=== PATIENT | female | born 1990 | race Caucasian/White ===

== ENCOUNTER 2020-11-18 15:36 | Inpatient (IN) | payer OTHER ==
[~2020-11-18] VITALS: Ht 170.2 cm; Wt 77.7 kg
[2020-11-18] MEDS ORDERED: PREN1TAB60 PO (15:54)
[2020-11-18 16:12] VITALS: BP 117/65
[2020-11-18 16:13] LABS: MICROSCOPIC INDICATED
[2020-11-18] MEDS ORDERED: NEWBORN KIT ONE (20:19)
[2020-11-18] MEDS ORDERED: OXYTOCIN 30U/ 0.9% NaCL 500ML 500 ML ONE (20:19)
[2020-11-18] MEDS ORDERED: LIDOCAINE 1%, 20ML ONE (20:19)
[2020-11-18] MEDS ORDERED: MISOPROSTOL 200 MCG TABLET ONE (20:19)
[2020-11-18] MEDS ORDERED: TERBUTALINE 1 MG/ML, 1ML IVPush PRN (21:00)
[2020-11-18] MEDS ORDERED: SODIUM CITRATE/CITRIC ACID 30 ML UDC PO PRN (21:00)
[2020-11-18] MEDS ORDERED: METOCLOPRAMIDE 5 MG/ML, 2ML IVPush PRN (21:00)
[2020-11-18] MEDS ORDERED: TERBUTALINE 1 MG/ML, 1ML SQ PRN (21:00)
[2020-11-18] MEDS ORDERED: BETAMETHASONE 6 MG/ML, 5ML IM ONE (21:00)
[2020-11-18] MEDS ORDERED: OXYTOCIN 30U/ 0.9% NaCL 500ML 500 ML IV ONE (21:00)
[2020-11-18] MEDS ORDERED: FENTANYL PF 100 MCG/2ML IVPush PRN (21:00)
[2020-11-18] MEDS ORDERED: PENICILLIN GK 5,000,000 UNITS in DEXTROSE 5% 100 ML IVPB ONE (21:00)
[2020-11-18] MEDS ORDERED: D5%-LACTATED RINGERS 1,000 ML IV SCH (21:00)
[2020-11-18] MEDS ORDERED: FENTANYL PF 100 MCG/2ML IV PRN (21:00)
[2020-11-18] MEDS ORDERED: OXYTOCIN 30U/ 0.9% NaCL 500ML 500 ML IV PRN (21:00)
[2020-11-18] MEDS ORDERED: LACTATED RINGERS 1,000 ML IV SCH (21:00)
[2020-11-18 21:23] LABS: BASOPHILS % (AUTO) 0 % (0-1); EOSINOPHILS % (AUTO) 1 % (1-7); LYMPHOCYTES % (AUTO) 21 % (22-44); MEAN CORPUSCULAR HGB CONC 35.3 g/dL (32.4-35.8); MEAN PLATELET VOLUME 8.5 fL (7.4-10.4); MONOCYTES % (AUTO) 7 % (2-9); NEUTROPHILS % (AUTO) 72 % (42-75); PLATELET COUNT 150 x10^3/uL (130-400); RED BLOOD COUNT 3.81 x10^6/uL (3.82-5.3); RED CELL DISTRIBUTION WIDTH 13.7 % (9.6-15.2)
[2020-11-19] MEDS: PENICILLIN GK 2,500,000 UNITS in DEXTROSE 5% 100 ML IVPB SCH ×3 (00:58→09:25)
[2020-11-19] MEDS ORDERED: ACETAMINOPHEN 325 MG TABLET ONE (05:39)
[2020-11-19] MEDS ORDERED: ACETAMINOPHEN 325 MG TABLET PO PRN (06:00)
[2020-11-19] MEDS ORDERED: BETAMETHASONE 6 MG/ML, 5ML IM ONE (10:00)
== END 2020-11-19 10:31 | disposition home or self-care (01) | DRG 833 ==
LOC: LDOP 15:36 → LDIP 20:35
PROVIDERS: ADMIT Obstetrics & Gynecology; ATTEND Obstetrics & Gynecology
DX: O60.03 Preterm labor without delivery, third trimester (principal); Z3A.35 35 weeks gestation of pregnancy; Z86.16 Personal history of COVID-19; O36.8130 Decreased fetal movements, third trimester, not applicable or unspecified; Z20.822 Contact with and (suspected) exposure to COVID-19
CPT/HCPCS: 36415; 76815; 81001; 84112; 85025; 86592; 86850; 86900; 87086; 87635; 89060; G0378; J0702; J2540; J7120; Q0114

== ENCOUNTER 2020-12-07 15:38 | Outpatient (CLI) | payer OTHER ==
[~2020-12-07 15:38] MED LIST: PREN1TAB60 PO
== END 2020-12-07 17:10 | disposition home or self-care (01) ==
LOC: LDOP 15:38
PROVIDERS: ATTEND Obstetrics & Gynecology
DX: O26.893 Other specified pregnancy related conditions, third trimester (principal); R10.9 Unspecified abdominal pain; Z3A.37 37 weeks gestation of pregnancy
CPT/HCPCS: 59025

== ENCOUNTER 2020-12-17 10:16 | Inpatient (IN) | payer OTHER ==
[~2020-12-17] VITALS: Ht 170.2 cm; Wt 80.5 kg
[2020-12-17] MEDS ORDERED: TERBUTALINE 1 MG/ML, 1ML SQ PRN (10:30)
[2020-12-17] MEDS ORDERED: OXYTOCIN 30U/ 0.9% NaCL 500ML 500 ML IV ONE (10:30)
[2020-12-17] MEDS ORDERED: OXYTOCIN 30U/ 0.9% NaCL 500ML 500 ML IV PRN (10:30)
[2020-12-17] MEDS ORDERED: FENTANYL PF 100 MCG/2ML IV PRN (10:30)
[2020-12-17] MEDS ORDERED: D5%-LACTATED RINGERS 1,000 ML IV SCH (10:30)
[2020-12-17] MEDS ORDERED: FENTANYL PF 100 MCG/2ML IVPush PRN (10:30)
[2020-12-17] MEDS ORDERED: TERBUTALINE 1 MG/ML, 1ML IVPush PRN (10:30)
[2020-12-17] MEDS ORDERED: ONDANSETRON 2MG/ML, 2ML IVPush PRN (10:30)
[2020-12-17] MEDS: LACTATED RINGERS 1,000 ML IV SCH ×2 (10:40→14:58)
[2020-12-17 10:49] VITALS: BP 122/72
[2020-12-17 11:00] LABS: BASOPHILS % (AUTO) 1 % (0-1); EOSINOPHILS % (AUTO) 1 % (1-7); LYMPHOCYTES % (AUTO) 15 % (22-44); MEAN CORPUSCULAR HEMOGLOBIN 30.9 pg (27.0-34.8); MEAN PLATELET VOLUME 8.4 fL (7.4-10.4); MONOCYTES % (AUTO) 10 % (2-9); NEUTROPHILS % (AUTO) 73 % (42-75); PLATELET COUNT 168 x10^3/uL (130-400); RED BLOOD COUNT 3.86 x10^6/uL (3.82-5.3)
[2020-12-17] MEDS ORDERED: NEWBORN KIT ONE (12:53)
[2020-12-17] MEDS ORDERED: LACTATED RINGERS 1,000 ML IV SCH (15:00)
[2020-12-17] MEDS ORDERED: FENTANYL/BUPIV./NS/PF 250 ML EPIDCONT SCH (15:00)
[2020-12-17] MEDS ORDERED: LACTATED RINGERS 1,000 ML IVBOLUS PRN (15:00)
[2020-12-17] MEDS ORDERED: NALOXONE 0.4 MG/ML, 1ML IVPush PRN (15:00)
[2020-12-17] MEDS ORDERED: EPHEDRINE 50 MG/ML, 1ML IVPush PRN (15:00)
[2020-12-17] MEDS ORDERED: FENTANYL/BUPIV./NS/PF 250 ML EPIDCONT ONE (15:02)
[2020-12-17] MEDS ORDERED: LIDOCAINE/PF 1.5% EPI 1:200K, 10 ML ONE (15:02)
[2020-12-17] MEDS ORDERED: BUPIVACAINE 0.25% ONE (15:02)
[2020-12-17] MEDS ORDERED: ONDANSETRON 2MG/ML, 2ML IV PRN (17:00)
[2020-12-17] MEDS ORDERED: METHYLERGONOVINE 0.2 MG/ML IM PRN ×2 (17:00→18:00)
[2020-12-17] MEDS: OXYTOCIN 30U/ 0.9% NaCL 500ML 500 ML IV SCH (17:00)
[2020-12-17] MEDS ORDERED: CALCIUM CARBONATE 500 MG TAB.CHEW PO PRN (17:00)
[2020-12-17] MEDS ORDERED: ACETAMINOPHEN 325 MG TABLET PO PRN ×2 (17:00)
[2020-12-17] MEDS ORDERED: OXYcodone/APAP 5/325MG TABLET PO PRN ×2 (17:00)
[2020-12-17] MEDS ORDERED: MISOPROSTOL 200 MCG TABLET PR PRN (17:00)
[2020-12-17] MEDS ORDERED: SIMETHICONE 80 MG CHEW TAB PO PRN (17:00)
[2020-12-17] MEDS ORDERED: IBUPROFEN 600 MG TABLET ONE (17:42)
[2020-12-17] MEDS: IBUPROFEN 800 MG TABLET PO PRN (17:45)
[2020-12-17 20:06] VITALS: BP 135/83
[2020-12-18 00:30] VITALS: BP 124/79
[2020-12-18 00:40] LABS: BASOPHILS % (AUTO) 0 % (0-1); EOSINOPHILS % (AUTO) 1 % (1-7); LYMPHOCYTES % (AUTO) 14 % (22-44); MEAN CORPUSCULAR HEMOGLOBIN 30.5 pg (27.0-34.8); MEAN CORPUSCULAR HGB CONC 34.5 g/dL (32.4-35.8); MEAN PLATELET VOLUME 8.7 fL (7.4-10.4); MONOCYTES % (AUTO) 10 % (2-9); NEUTROPHILS % (AUTO) 75 % (42-75); PLATELET COUNT 147 x10^3/uL (130-400); RED BLOOD COUNT 3.86 x10^6/uL (3.82-5.3); RED CELL DISTRIBUTION WIDTH 13.8 % (9.6-15.2)
[2020-12-18] MEDS: IBUPROFEN 800 MG TABLET PO PRN ×2 (01:14→09:12)
[2020-12-18] MEDS: DOCUSATE 100 MG CAPSULE PO PRN ×2 (01:14→09:12)
[2020-12-18] MEDS: OXYTOCIN 30U/ 0.9% NaCL 500ML 500 ML IV SCH ×3 (03:00→12:59)
[2020-12-18 04:40] VITALS: BP 116/80
[2020-12-18 07:35] VITALS: BP 122/78
[2020-12-18] MEDS ORDERED: PRENATAL VIT/IRON/FA 1 EACH TABLET PO SCH (09:00)
[2020-12-18] MEDS ORDERED: DOCU-131 PO (10:17)
[2020-12-18] MEDS ORDERED: IBUP-1222 PO (10:18)
== END 2020-12-18 18:54 | disposition home or self-care (01) | DRG 807 ==
LOC: LDIP 10:16 → 2NW 20:01
PROVIDERS: ADMIT Obstetrics & Gynecology; ATTEND Obstetrics & Gynecology
PROC: 10E0XZZ Delivery of Products of Conception, External Approach (ICD-10-PCS; principal; 2020-12-17)
PROC: 0KQM0ZZ Repair Perineum Muscle, Open Approach (ICD-10-PCS; 2020-12-17)
PROC: 10907ZC Drainage of Amniotic Fluid, Therapeutic from Products of Conception, Via Natural or Artificial Opening (ICD-10-PCS; 2020-12-17)
PROC: 10H07YZ Insertion of Other Device into Products of Conception, Via Natural or Artificial Opening (ICD-10-PCS; 2020-12-17)
PROC: 3E033VJ Introduction of Other Hormone into Peripheral Vein, Percutaneous Approach (ICD-10-PCS; 2020-12-17)
PROC: 3E0R3BZ Introduction of Anesthetic Agent into Spinal Canal, Percutaneous Approach (ICD-10-PCS; 2020-12-17)
PROC: 00HU33Z Insertion of Infusion Device into Spinal Canal, Percutaneous Approach (ICD-10-PCS; 2020-12-17)
DX: O70.1 Second degree perineal laceration during delivery (principal); Z37.0 Single live birth; Z3A.39 39 weeks gestation of pregnancy; Z86.16 Personal history of COVID-19; Z20.822 Contact with and (suspected) exposure to COVID-19
CPT/HCPCS: 36415; 85025; 86592; 86850; 86900; 87635; G0378; J2590; J3010; J7120